=== PATIENT | female | born 1980 | race Caucasian/White ===

== ENCOUNTER 2017-04-25 23:04 | Emergency (ER) | payer OTHER ==
[2017-04-25 23:31] VITALS: BP 125/84
== END 2017-04-26 01:01 | disposition home or self-care (01) ==
LOC: ED 23:04
DX: S61.451A Open bite of right hand, initial encounter (principal); W54.0XXA Bitten by dog, initial encounter; Y93.89 Activity, other specified; Y92.89 Other specified places as the place of occurrence of the external cause; Y99.8 Other external cause status
CPT/HCPCS: 90715; J0295

== ENCOUNTER 2018-05-26 14:46 | Emergency (ER) | payer OTHER ==
[~2018-05-26] VITALS: Ht 160 cm; Wt 77.1 kg
[2018-05-26 14:52] VITALS: Ht 160 cm; Wt 77.1 kg
[2018-05-26 15:29] LABS: BASOPHIL % 0.5 % (0-2); RED CELL DISTRIBUTION WIDTH 12.8 % (11.5-14.5)
[2018-05-26 15:30] LABS: PLATELET COUNT 412 x10^3mcL (130-400)
[2018-05-26 15:44] LABS: CALCIUM 8.9 mg/dL (8.5-10.1); CARBON DIOXIDE 28.4 mmol/L (21-32); CHLORIDE SERUM 96 mmol/L (98-107); CREATININE SERUM 0.7 mg/dL (0.6-1.0); GFR1 > 60 mL/min; GLUCOSE SERUM 156 mg/dL (74-106); POTASSIUM SERUM 3.7 mmol/L (3.5-5.1); SODIUM SERUM 135 mmol/L (136-145)
[2018-05-26 16:19] VITALS: BP 118/69
== END 2018-05-26 16:29 | disposition home or self-care (01) ==
LOC: ED 14:46
PROVIDERS: Emergency Medicine
DX: R00.2 Palpitations (principal); R25.1 Tremor, unspecified
CPT/HCPCS: 36415

== ENCOUNTER 2019-01-14 14:19 | Emergency (ER) | payer OTHER ==
[~2019-01-14] VITALS: Ht 162.6 cm; Wt 69.9 kg
[2019-01-14 14:52] VITALS: BP 108/77; Ht 162.6 cm; Wt 69.9 kg
== END 2019-01-14 17:00 | disposition home or self-care (01) ==
LOC: ED 14:19
DX: J06.9 Acute upper respiratory infection, unspecified (principal); Z98.890 Other specified postprocedural states

== ENCOUNTER 2019-02-05 23:12 | Emergency (ER) | payer OTHER ==
[~2019-02-05] VITALS: Ht 160 cm; Wt 68.0 kg
[2019-02-05 23:17] VITALS: Ht 160 cm; Wt 68.0 kg
[2019-02-06 00:45] VITALS: BP 110/70
== END 2019-02-06 00:46 | disposition home or self-care (01) ==
LOC: ED 23:12
DX: F41.9 Anxiety disorder, unspecified (principal); Z98.890 Other specified postprocedural states
CPT/HCPCS: J2060

== ENCOUNTER 2019-11-16 18:15 | Inpatient (IN) | payer OTHER ==
[~2019-11-16] VITALS: Ht 162.6 cm; Wt 66.3 kg
[2019-11-16 18:17] VITALS: Ht 162.6 cm; Wt 66.3 kg
[2019-11-16 18:47] LABS: BASOPHIL % 0.4 % (0-2); PLATELET COUNT 349 x10^3mcL (130-400)
[2019-11-16 18:48] LABS: RED CELL DISTRIBUTION WIDTH 17.1 % (11.5-14.5)
[2019-11-16 19:04] LABS: CALCIUM 8.4 mg/dL (8.5-10.1); CARBON DIOXIDE 24.9 mmol/L (21-32); CHLORIDE SERUM 108 mmol/L (98-107); CREATININE SERUM 0.6 mg/dL (0.6-1.0); GFR1 > 60 mL/min; GLUCOSE SERUM 100 mg/dL (74-106); POTASSIUM SERUM 3.7 mmol/L (3.5-5.1); SODIUM SERUM 145 mmol/L (136-145)
[2019-11-16 19:08] LABS: ALBUMIN 3.8 g/dL (3.4-5.0); ALKALINE PHOSPHATASE 73 U/L (46-116); ALT/SGPT 24 U/L (14-59); AST/SGOT 14 U/L (15-37); BILIRUBIN TOTAL 0.1 mg/dL (0.20-1.00); TOTAL PROTEIN, SERUM 7.7 g/dL (6.4-8.2)
[2019-11-17] MEDS ORDERED: XANAX1 MG (01:16)
[2019-11-17 01:17] LABS: microscopic required? YES; urine erythrocyte 1+ (NEGATIVE)
[2019-11-17 01:39] LABS: T3 TOTAL 0.9 ng/mL
[2019-11-17 02:02] LABS: AMPHETAMINE QUAL UR NONE DETECTED (See below)
[2019-11-17 02:07] LABS: CHOLESTEROL/HDL RATIO 3.8; MAGNESIUM 2.2 mg/dL (1.8-2.4); PHOSPHOROUS 3.8 mg/dL (2.5-4.9)
[2019-11-17 03:09] VITALS: BP 102/72
[2019-11-17 05:06] LABS: FREE T4 1.08 ng/dL (0.76-1.46); FREE THYROXINE INDEX 2.9 ug/dL (1.4-4.5)
[2019-11-17 05:42] VITALS: BP 104/70
[2019-11-17 06:26] LABS: BASOPHIL % 0.6 % (0-2); PLATELET COUNT 302 x10^3mcL (130-400)
[2019-11-17 06:39] LABS: RED CELL DISTRIBUTION WIDTH 17.2 % (11.5-14.5)
[2019-11-17 07:05] LABS: CALCIUM 8.1 mg/dL (8.5-10.1); CARBON DIOXIDE 23.5 mmol/L (21-32); CHLORIDE SERUM 110 mmol/L (98-107); CREATININE SERUM 0.6 mg/dL (0.6-1.0); GFR1 > 60 mL/min; GLUCOSE SERUM 82 mg/dL (74-106); PHOSPHOROUS 3.9 mg/dL (2.5-4.9); POTASSIUM SERUM 3.5 mmol/L (3.5-5.1); SODIUM SERUM 143 mmol/L (136-145)
[2019-11-17 09:09] VITALS: BP 111/77
[2019-11-17 11:31] VITALS: BP 111/77
[2019-11-17 12:53] VITALS: BP 94/56
== END 2019-11-17 15:34 | disposition home or self-care (01) | DRG 812 ==
LOC: ED 18:15 → MU 11-17 00:26 → DU 11-17 00:26
PROVIDERS: Emergency Medicine; ADMIT Student in an Organized Health Care Education/Training Program
DX: T42.4X1A Poisoning by benzodiazepines, accidental (unintentional), initial encounter (principal); G92 Toxic encephalopathy; E83.51 Hypocalcemia; F41.9 Anxiety disorder, unspecified; D64.9 Anemia, unspecified; Y92.018 Other place in single-family (private) house as the place of occurrence of the external cause; Z68.25 Body mass index [BMI] 25.0-25.9, adult
CPT/HCPCS: 82962; 83880; 84439; G0378; G0480; J7030